=== PATIENT | male | born 1955 | race Caucasian/White ===

== ENCOUNTER 2024-08-10 10:29 | Emergency (ER) | payer OTHER, MEDICARE, SELFPAY ==
[2024-08-10 10:31] VITALS: BP 149/68; PULSE 62; RESP 20; TEMP 36.8; O2SAT 96; BMI 26.1
[2024-08-10 11:00] VITALS: BP 115/68; PULSE 62; O2SAT 97
--- NOTE | 2024-08-10 11:22 | PC.NURSE ---
Rounded on the PT. The PT voices that he does not need anything at this time. is present at the bedside.
--- NOTE | 2024-08-10 11:27 | PC.NURSE ---
Pt called out stating he was ready to leave. I presented into room and discussed with pt that Dr. Prakash will be in as soon as she can to clean and dress the wound and then d/c them. Pt states his needs to get on home . I apologized to them for the delay in the dressing by the provider as she has been attending to another serious pt for a short time.
--- NOTE | 2024-08-10 11:38 | PC.NURSE ---
Dr. Prakash at bedside to clean and dress wound.
[2024-08-10 11:40] VITALS: BP 122/65; PULSE 60; RESP 20; TEMP 36.8; O2SAT 97
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
== END 2024-08-10 11:56 | disposition home or self-care (01) ==
PROVIDERS: Emergency Provider Student in an Organized Health Care Education/Training Program; PCP Internal Medicine
DX: T25.221A Burn of second degree of right foot, initial encounter (principal); M79.671 Pain in right foot; F17.210 Nicotine dependence, cigarettes, uncomplicated; X19.XXXA Contact with other heat and hot substances, initial encounter; Y93.89 Activity, other specified; Y92.008 Other place in unspecified non-institutional (private) residence as the place of occurrence of the external cause
CPT/HCPCS: 99283